=== PATIENT | female | born 1965 | race Caucasian/White ===

== ENCOUNTER 2017-04-29 22:04 | Emergency (ER) | payer MEDICAID ==
[~2017-04-29 22:04] MED LIST: ASPIRIN LOW STR81 MG PO; COREG6.25 M1 PO; DIABETA PO; FAMOTIDINE20 M2 PO; FLEXERIL 10MG PO; GLYBURIDE5 MG PO; LANTUS100 U/ML SC; LANTUS100 UNITS/ SC; LASIX20 MG PO; LASIX40 M1 PO; LEVOTHYROXINE150 MC3 PO; LOPID600 M1 PO; LOPID600 MG PO; LOPRESSOR25 MG/TA7 PO; METFORMIN HCL1000 MG PO; METFORMIN HCL500 M2 PO; NAUSEA MED; NEURONTIN300 MG PO; NOVOLOG100 U/M; NOVOLOG100 UNITS/ SC; PRILOSEC20 MG PO; RESTORIL15 MG PO; ROXICODONE5 M2 PO; ROXICODONE5 MG/TAB PO; XIFAXAN550 M1 PO
== END 2017-04-29 23:55 ==
LOC: EDMED 22:04
DX: S20.211A Contusion of right front wall of thorax, initial encounter (principal); S80.211A Abrasion, right knee, initial encounter; I10 Essential (primary) hypertension; E11.9 Type 2 diabetes mellitus without complications; F17.210 Nicotine dependence, cigarettes, uncomplicated; Z79.4 Long term (current) use of insulin; Z79.82 Long term (current) use of aspirin; Z79.899 Other long term (current) drug therapy; V86.59XA Driver of other special all-terrain or other off-road motor vehicle injured in nontraffic accident, initial encounter
CPT/HCPCS: J1170